=== PATIENT | female | born 1990 | race Caucasian/White ===

== ENCOUNTER 2022-03-24 09:30 | Emergency (ER) | payer SELFPAY ==
[2022-03-24 10:13] VITALS: BP 119/70; PULSE 83; RESP 18; TEMP 36.8; O2SAT 99; BMI 27.1
--- NOTE | 2022-03-24 10:43 | HMH.EDUTC ---
[facility] [place] Disposition Clinical Impression: UTI (urinary tract infection) Qualifiers: Urinary tract infection type: site unspecified Hematuria presence: with hematuria Qualified Code(s): N39.0 - Urinary tract infection, site not specified; R31.9 - Hematuria, unspecified Disposition: Home, Self-Care Condition on Discharge: Good Instructions: DI for Urinary Tract Infection (UTI), Urinary Tract Infection, Phenazopyridine Additional Instructions: *Increase fluids. Water not Soda or Tea *Start antibiotic immediately and be sure to take as ordered for the FULL length of time although you should start to see improvement over the next 48 hours *Pyridium as needed Remember this medication will turn your urine [place]. This is normal but it will stain what ever it gets on *You should not use Pyridium for more than 48 hours. If so , follow up with your primary physician to review urine culture and ensure that antibiotic is adequate for infection *Be SURE to follow up anytime for new or worsening symptoms with your family doctor. AND in 48 hours for urine culture results with your family doctor, if you do not have a doctor then you may call back to the [facility] for urine culture results and further treatment. We do recommend that you choose and establish care with a Primary Care Physician. AND follow up with them in 10-14 days to repeat UA to ensure infection is resolved and blood no longer present *Be sure to let your PCP know that we sent urine cultures from the [facility] so they can follow up to ensure that you area the on the correct antibiotic Call your doctor office and make appointment for 48 hours (2 days from today) to follow up and get the results of your urine culture and further treatment Prescriptions: Nitrofurantoin Monohyd/M-Cryst [Macrobid 100 mg Capsule] 100 mg PO BID #14 cap Transmission Status: Pending to [id number] Phenazopyridine HCl [Pyridium 200mg Tablet] 200 pow PO TID #6 tab Transmission Status: Pending to [id number] Referrals: Stiven Lake MD [Primary Care Provider] - As needed Time of Disposition: 10:52 Medical Decision Making - Roe Inquiry Pt receiving controlled substance: No Roe was queried for this patient: No Vital Signs: 03/24/22 10:13 Temperature 98.3 F Temperature Source Oral Pulse Rate [Left Brachial] 83 Respiratory Rate 18 Blood Pressure [Left Arm] 119/70 Blood Pressure Mean [Left Arm] 86 Blood Pressure Source [Left Arm] Automatic Cuff Blood Pressure Position [Left Arm] Sitting 02 Sat by Pulse Oximetry 99 Oxygen Delivery Method Room Air - Lab Data Lab results reviewed: Yes: I reviewed the patient's lab results. [facility] [place] HPI - General Stated complaint: possible uti Time Seen by Provider: 03/24/22 10:43 Mode of Arrival: Ambulatory Source of Information: Patient Limitations: No Limitations Description of Symptoms (Recalled from Triage Doc. by RN): PATIENT C/O FREQUENT URINATION AND PAIN WITH URINATION X 1 WEEK HEENT Symptoms (Recalled from RN notes): No Resp Symptoms (Recalled from RN notes): No Skin Symptoms (Recalled from RN notes): No MS Symptoms (Recalled from RN notes): No Functional Status (Recalled from RN notes): WNL - History of Present Illness Provider Complaint: Patient states that for about a week she has been having burning with urination and feeling of frequency and urgency States that today she was still having symptoms so she came in to get checked for a UTI - Related Data Home Medications Medication Instructions Recorded Confirmed cetirizine 5 mg-pseudoephedrine ER 1 tab PO BID 06/06/20 06/06/20 120 mg tablet,extended release,12hr Previous Rx's Medication Instructions Recorded Nitrofurantoin Monohyd/M-Cryst 100 mg PO BID #14 cap 03/24/22 [Macrobid 100 mg Capsule] Phenazopyridine HCl [Pyridium 200 pow PO TID #6 tab 03/24/22 200mg Tablet] Allergies Allergy/AdvReac Type Severity Reaction Status Date / Time No Known
[2022-03-24 10:57] VITALS: BP 119/70; PULSE 83; RESP 18; TEMP 36.8; O2SAT 99
[2022-03-24 11:11] LABS: Apearance,Urine Clear (Clear); Color,Urine Yellow (Yellow); PH,Urine 5.5 (5.0-8.5)
[2022-03-24 11:12] LABS: Bilirubin,Urine Negative (Negative); Blood, Urine Trace (Negative); Glucose,Urine (UA) Negative (Negative); Ketones,Urine Negative (Negative); Protein,Urine 1+ (Negative); UTC Leukocyte Esterase,Urine 3+ (Negative); UTC Nitrate,Urine Positive (Negative); Urobilinogen,Urine 0.2 EU/dl (0.2)
== END 2022-03-24 11:01 | disposition home or self-care (01) ==
PROVIDERS: Emergency Provider Nurse Practitioner; PCP Family Medicine
DX: N39.0 Urinary tract infection, site not specified (principal); R31.9 Hematuria, unspecified
CPT/HCPCS: 81003; 87086; 87088; 87186; 99212; G0463

== ENCOUNTER 2022-03-25 19:09 | Emergency (ER) | payer SELFPAY ==
[2022-03-25 19:16] VITALS: BP 123/66; PULSE 144; RESP 19; TEMP 39.6; O2SAT 97; BMI 28.0
--- NOTE | 2022-03-25 19:23 | CT_ITS ---
PROCEDURE INFORMATION: Exam: CT Abdomen And Pelvis With Contrast Exam date and time: 03/25/2022 9:14 PM Age: 31 years old Clinical indication: Abdominal pain; Generalized; Patient HX: Pain in area of kidneys since last Tuesday. States she had a UTI last week. Hematuria at this time. ; Additional info: Low abd discomfort, fever TECHNIQUE: Imaging protocol: Computed tomography of the abdomen and pelvis with contrast. Radiation optimization: All CT scans at this facility use at least one of these dose optimization techniques: automated exposure control; mA and/or kV adjustment per patient size (includes targeted exams where dose is matched to clinical indication); or iterative reconstruction. Contrast material: ISOVUE; Contrast volume: 75 ml; Contrast route: IV; COMPARISON: No relevant prior studies available. FINDINGS: Lungs: No mass/infiltrate at either lung base. No pleural effusion. Liver: The liver is normal in size and attenuation. No intrahepatic biliary dilitation. Gallbladder and bile ducts: Normal. No calcified stones. No ductal dilation. Gallbladder wall thickness is normal. Pancreas: Normal. No ductal dilation. Spleen: Normal. No splenomegaly. Adrenal glands: Normal. No mass. Kidneys and ureters: Focal area of diminished uptake noted within the posterior superior pole and interpolar region of the right kidney. Given a history of urinary tract infection these findings are compatible with right pyelonephritis. Contrast enhancement of the left kidney is normal. Benign bilateral extrarenal pelves. No hydronephrosis. Stomach and bowel: Unremarkable. No obstruction. No mucosal thickening. Small bowel mesentery is normal. Appendix: Unremarkable. Intraperitoneal space: Trace ascites within the pelvis. No evidence of free air. Vasculature: Unremarkable. No abdominal aortic aneurysm. Lymph nodes: Unremarkable. No enlarged lymph nodes. Urinary bladder: Unremarkable as visualized. Reproductive: Intrauterine device in place. Otherwise unremarkable. Bones/joints: Unremarkable. No acute fracture. Soft tissues: There are calcifications identified within subcutaneous fat of the right buttock. These could represent small injection granulomata. IMPRESSION: 1. Diminished uptake within posterior aspects of the superior pole and interpolar region of the right kidney. Primary diagnostic consideration is right pyelonephritis. 2. Trace ascites within the pelvis. This is of uncertain clinical significance. 3. Intrauterine device in place.
[2022-03-25 20:05] LABS: Basophils % 0.1 % (0.1-2.0); Eosinophils % 0.3 % (0.1-12.0); Hemoglobin 12.8 g/dL (12.2-16.2); Lymphocytes # 0.5 K/mm3 (0.7-4.5); Lymphocytes % 4.4 % (10-50); Mean Corpuscular HGB Conc 33.7 g/dL (31.8-35.4); Mean Corpuscular Hemoglobin 31.3 pg (27.0-31.2); Mean Corpuscular Volume 92.9 fl (81-99); Monocytes # 0.4 K/mm3 (0.1-1.0); Monocytes % 3.1 % (1.7-9.3); Neutrophils # 10.8 K/mm3 (1.8-7.8); Platelet Count 187 K/mm3 (142-424); Red Blood Count 4.09 M/mm3 (4.20-5.40); Red Cell Distribution Width 12.2 % (11.5-17.5); White Blood Count 11.7 K/mm3 (4.8-10.8)
[2022-03-25 20:07] LABS: Chloride 104 mmol/L (98-107); Potassium 3.6 mmoL/L (3.5-5.1); Sodium 135 mmol/L (136-145)
[2022-03-25 20:10] LABS: Alanine Aminotransferase 21 U/L (12-78); Albumin Level 4.1 g/dl (3.5-5.0); Albumin/Globulin Ratio 1.4 (1.1-1.8); Alkaline Phosphatase 73 U/L (38-126); Anion Gap 12.6 mEq/L (5-15); Aspartate Amino Transferase 31 U/L (14-36); Bilirubin,Total 0.4 mg/dl (0.2-1.3); Blood Urea Nitrogen 11 mg/dl (7-17); Carbon Dioxide 22 mmol/L (22.0-30.0); Creatinine Clearance Estimated 137 mL/min (50-200); Estimated Glomerular Filt Rate 98 ml/min (>60); GFR (African American) 119 ML/MIN (>60); Total Protein,Serum 7.1 g/dl (6.3-8.2)
[2022-03-25 20:11] LABS: Calcium 9.5 mg/dl (8.4-10.2); Glucose 159 mg/dl (74-100); Lactic Acid 1.1 mmol/L (0.7-2.1)
--- NOTE | 2022-03-25 20:11 | HMH.EDUROGF ---
ED Disposition Clinical Impression: SIRS (systemic inflammatory response syndrome) UTI (urinary tract infection) Qualifiers: Urinary tract infection type: acute pyelonephritis Qualified Code(s): N10 - Acute pyelonephritis Disposition: Home, Self-Care Condition on Discharge: Good Instructions: DI for Urinary Tract Infection (UTI) Additional Instructions: fluidds and call pcp for urine culture results Referrals: Stiven Lake MD [Primary Care Provider] - - Critical Care Critical Care Time: No Attestation: On 03/25/22, the high probability of a clinically significant, sudden or life threatening deterioration of the following system(s) required my full and direct attention, intervention and personal management. The time I documented below is in addition to time spent performing reported procedures but includes the following listed in this critical care notation. Medical Decision Making - Medical Records Medical records reviewed: Yes: I reviewed the patient's medical records. - Roe Inquiry Pt receiving controlled substance: No Vital Signs: 03/25/22 19:16 03/25/22 20:59 03/25/22 21:45 Temperature 103.2 F H Temperature Source Oral Pulse Rate 108 H 93 H Pulse Rate [Right Brachial] 144 H Respiratory Rate 19 Blood Pressure 121/65 113/59 L Blood Pressure [Right Arm] 123/66 Blood Pressure Mean 76 Blood Pressure Mean [Right Arm] 85 Blood Pressure Source [Right Arm] Automatic Cuff Blood Pressure Position [Right Arm] Sitting 02 Sat by Pulse Oximetry 97 98 97 Oxygen Delivery Method Room Air Room Air - Lab Data Lab results reviewed: Yes: I reviewed the patient's lab results. Lab Results 03/25/22 19:00: WBC 11.7 H, RBC 4.09 L, Hgb 12.8, Hct 38.0, MCV 92.9, MCH 31.3 H, MCHC 33.7, RDW 12.2, Plt Count 187, MPV 9.0, Neut % (Auto) 92.0 H, Lymph % (Auto) 4.4 L, Pope % (Auto) 3.1, Eos % (Auto) 0.3, Baso % (Auto) 0.1, Neut # (Auto) 10.8 H, Lymph # (Auto) 0.5 L, Pope # (Auto) 0.4, Eos # (Auto) 0.0, Baso # (Auto) 0.0 03/25/22 19:00: Sodium 135 L, Potassium 3.6, Chloride 104, Carbon Dioxide 22, Anion Gap 12.6, BUN 11, Creatinine 0.70, Estimated Creat Clear 137, Estimated GFR 98, Est GFR ( Amer) 119, Glucose 159 H, Calcium 9.5, Total Bilirubin 0.4, AST 31, ALT 21, Alkaline Phosphatase 73, Total Protein 7.1, Albumin 4.1, Globulin 3.0, Albumin/Globulin Ratio 1.4 03/25/22 19:00: Lactate 1.1 03/25/22 20:28: Urine Color [place], Urine Appearance Clear, Urine pH 5.5, Ur Specific [place] 1.010, Urine Protein 1+, Urine Glucose (UA) Trace, Urine Ketones Negative, Urine Blood Negative, Urine Nitrate Positive, Urine Bilirubin 1+ A, Urine Urobilinogen 4.0, Ur Leukocyte Esterase 2+ A, Urine RBC 3-5, Urine WBC 20-50, Ur Squamous Epith Cells 5-10, Urine Bacteria 1+ 03/25/22 20:28: Urine HCG, Qual Negative Result diagrams: 03/25/22 19:00 03/25/22 19:00 Orders (Tests/Meds): ED MEDICATIONS Generic Name Dose Route Start Last Admin Trade Name Freq PRN Reason Stop Dose Admin Sodium Chloride 1,000 mls @ 999 mls/hr 03/25/22 19:30 03/25/22 19:44 Sod Chlor 0.9% 1000ml Bag IV 03/25/22 20:30 999 mls/hr .Q1H1M YUDY Administration Ceftriaxone Sodium 1 gm/ 50 mls @ 100 mls/hr 03/25/22 21:45 03/25/22 21:38 Sodium Chloride IV 04/08/22 21:44 100 mls/hr Q24H YUDY Administration Discontinued Medications Generic Name Dose Route Start Last Admin Trade Name Freq PRN Reason Stop Dose Admin Ibuprofen 600 mg 03/25/22 19:23 03/25/22 19:44 Ibuprofen 600 Mg Tablet PO 03/25/22 19:24 600 mg ONCE ONE Administration Iopamidol 75 ml 03/25/22 21:28 03/25/22 21:30 Iopamidol-370 (76%);100ml Bottle IV 03/25/22 21:29 75 ml ONCE ONE Administration Ketorolac Tromethamine 15 mg 03/25/22 22:10 03/25/22 22:12 Ketorolac 30mg/Ml Vial IV 03/25/22 22:11 15 mg ONCE ONE Administration Sodium Chloride 10 ml 03/25/22 21:28 03/25/22 21:30 Sodium Chloride 0.9% 10ml Syr (Rad Only) I
[2022-03-25 20:16] LABS: MANUAL DIFFERENTIAL MANUAL DIFFERENTIAL (MANUAL DIFF)
--- NOTE | 2022-03-25 20:34 | PC.NURSE ---
URINE COLLECTED AND SENT TO LAB.
[2022-03-25 20:48] LABS: Microscopic, Urine URINE MICROSCOPIC (MICROSCOPIC)
[2022-03-25 20:54] LABS: Appearance,Urine CLEAR (Clear); Blood, Urine Negative (Negative); Color,Urine ORANGE (Yellow); Glucose,Urine (UA) TRACE (Negative); Ketones,Urine Negative (Negative); Leukocyte Esterase,Urine 2+ (Negative); Nitrate,Urine POSITIVE (Negative); PH,Urine 5.5 (5.0-8.5); Protein,Urine 1+ (Negative)
[2022-03-25 20:58] LABS: Bilirubin,Urine 1+ (Negative)
[2022-03-25 20:59] VITALS: BP 121/65; PULSE 108; O2SAT 98
--- NOTE | 2022-03-25 20:59 | PC.NURSE ---
Pt condition checked. No new needs at this time.
[2022-03-25 21:00] LABS: Urine Pregnancy, HCG Qual. Negative (Negative)
[2022-03-25 21:23] LABS: Bacteria,Urine 1+ /lpf; WBC,Urine 20-50 #/hpf (0-3)
[2022-03-25 21:45] VITALS: BP 113/59; PULSE 93; O2SAT 97
[2022-03-25 22:00] VITALS: BP 102/52; PULSE 103; RESP 16; TEMP 37.6; O2SAT 97
[2022-03-25 22:32] VITALS: BP 101/72; PULSE 90; RESP 16; TEMP 37.6; O2SAT 97
[2022-03-25 22:56] LABS: Lymphocytes % 8 % (10-50); Neutrophils % 92 % (42-76); Platelet Estimate Normal; RBC Morphology Normal; Total Cells Counted 100
== END 2022-03-25 22:43 | disposition home or self-care (01) ==
PROVIDERS: Emergency Medicine; Emergency Provider Emergency Medicine; PCP Family Medicine
DX: N10 Acute pyelonephritis (principal); R65.10 Systemic inflammatory response syndrome (SIRS) of non-infectious origin without acute organ dysfunction
CPT/HCPCS: 74177; 80053; 81001; 81025; 83605; 85007; 85025; 87040; 87086; 96365; 96375; J0696; Q9967